=== PATIENT | male | born 1965 | race Caucasian/White ===

== ENCOUNTER → 2018-07-03 16:39 | Outpatient (CLI) | payer OTHER, SELFPAY | PROVIDERS: Visit Provider Otolaryngology Otolaryngology/Facial Plastic Surgery | DX: J32.9 Chronic sinusitis, unspecified (principal) | CPT/HCPCS: 87070; 87205 ==

== ENCOUNTER → 2023-02-26 | Outpatient (CLI) | payer OTHER, SELFPAY ==
--- NOTE | 2023-02-26 15:15 | RAD_ITS ---
INDICATION: COUGH EXAMINATION/TECHNIQUE: X-RAY - XR Chest 2 Views COMPARISON: FINDINGS: LINES/DEVICES: None. LUNGS: Moderate over aeration consistent with COPD. No consolidation, edema or effusion. No pneumothorax. MEDIASTINUM AND CARDIOVASCULAR STRUCTURES: Cardiac silhouette not enlarged. Central airways and mediastinal contour are unremarkable. BONES AND SOFT TISSUES: Unremarkable. RAD/Chest PA and Lateral IMPRESSION: COPD. Electronically Signed: Gary Valiente MD, ESTEBAN at 17:38 EDT ,
== END | disposition home or self-care (01) ==
LOC: RAD 15:13
PROVIDERS: PCP Family Medicine; Referring Provider Family Medicine; Visit Provider Family Medicine
DX: R05.3 Chronic cough (principal)
CPT/HCPCS: 71046

== ENCOUNTER 2023-11-19 10:49 | Emergency (ER) | payer OTHER, SELFPAY ==
[2023-11-19] VITALS (11 sets, daily range): BP systolic 136–219; BP diastolic 84–118; PULSE 74–87; RESP 14–19; TEMP 35.9; O2SAT 95–100; BMI 20.1
--- NOTE | 2023-11-19 12:04 | EKG12_ITS ---
Test Reason : HTN Blood Pressure : / mmHG Vent. Rate : 091 BPM Atrial Rate : 091 BPM P-R Int : 162 ms QRS Dur : 090 ms QT Int : 362 ms P-R-T Axes : 071 067 061 degrees QTc Int : 445 ms Normal sinus rhythm Possible Left atrial enlargement Nonspecific ST abnormality Abnormal ECG Confirmed by MARITZA SINGH, REGAN ([id number]), editor [employer] journal COLBY NEVES ([id number]) on 11/21/2023 8:01:08 AM Referred By: Confirmed By:REGAN SALAS MD
--- OUTSIDE RECORDS SUMMARY | 2023-11-19 12:04 | XMS RPT_ITS | CCD ---
Author Name Unknown Address [address] [place] [address] Organization [facility] Care Team Providers Care Crm Technical Lead Name Role Phone Sandro Garcia MD Primary Care Provider Cindy Galicia RN Unavailable Walter Cruz Unavailable Christian Roldan MD Unavailable Walter Cruz Unavailable PROVIDER, UNKNOWN Referring Unavailable RADHA SANDRO B Primary Care Unavailable PROVIDER, UNKNOWN Referring Unavailable GARCIA, SANDRO B Primary Care Unavailable Cindy Galicia RN Unavailable SANDRO GARCIA Primary Care Unavailable AMBANI, KIT Referring Unavailable GARCIA, SANDRO B Primary Care Unavailable AMBANI, KIT Referring Unavailable GARCIA, SANDRO B Primary Care Unavailable JOYA TERRAZAS Referring Unavailable GARCIA, SANDRO B Primary Care Unavailable AMBANI, KIT Referring Unavailable AMBANI, KIT Attending Unavailable GARCIA, SANDRO B Primary Care Unavailable RICARDO JOYA Referring Unavailable TERRAZAS JOYA Attending Unavailable GARCIA, SANDRO B Primary Care Unavailable AMBANI, KIT Referring Unavailable GARCIA, SANDRO B Primary Care Unavailable AMBANI, KIT Attending Unavailable AMBANI, KIT Admitting Unavailable GARCIA, SANDRO B Primary Care Unavailable AMBANI, KIT Referring Unavailable GARCIA, SANDRO B Primary Care Unavailable PRENDES, CHRIS L Referring Unavailable AMBANI, KIT Attending Unavailable GARCIA, SANDRO B Primary Care Unavailable PRENMILES, CHRIS L Referring Unavailable GARCIA, SANDRO B Primary Care Unavailable PRENDES, CHRIS L Referring Unavailable GARCIA, SANDRO B Primary Care Unavailable PRENDES, CHRIS L Attending Unavailable GARCIA, SANDRO B Primary Care Unavailable Allergies Allergy Classification Reported Allergen(s) Allergy Type Date of Onset Reaction(s) Facility (12 sources) Amoxicillin / Clavulanate; Translations: [AMOXICILLIN-POT CLAVULANATE] Drug Allergy 10-30-2007 [facility] (1 source) Rocuronium; Translations: [ROCURONIUM] Drug Allergy 11-18-2023 [facility] Repository Medications Current Medications Medication Drug Class(es) Dates Sig (Normalized) Sig (Original) atorvastatin 80 mg oral tablet (1 source) HMG-CoA Reductase Inhibitor Start: 10-07-2023 End: 10-06-2024 take 1 tablet by mouth once daily atorvastatin (LIPITOR) 80 mg tablet Take 1 tablet by mouth once daily. 90 tablet 3 10/07/2023 10/06/2024 Active Completed/Discontinued Medications Medication Drug Class(es) Dates Sig (Normalized) Sig (Original) [id number] 200 actuat albuterol 0.09 mg/actuat metered dose inhaler (10 sources) beta2-Adrenergic Agonist Start: 07-10-2021 take 2-4 puff(s) by inhalation every two hours as needed for wheezing albuterol HFA (PROVENTIL HFA, VENTOLIN HFA) 90 mcg/actuation inhaler Inhale 2-4 Puffs as instructed every 2 hours as needed for wheezing/shortnes s of breath. 8 g 0 07/10/2021 Active Problems Active Problems Problem Classification Problem Date Documented Da te Episodic/Chronic Cancer of head and neck (12 sources) Malignant tumor of tonsil; Translations: [Malignant neoplasm of tonsil, unspecified] Onset: 02-20-2016 Chronic Chronic obstructive pulmonary disease and bronchiectasis (10 sources) Centriacinar emphysema; Translations: [Centrilobular emphysema] Onset: 06-12-2019 06-15-2019 Chronic Essential hypertension (10 sources) Essential hypertension; Translations: [Essential (primary) hypertension] Onset: 06-12-2019 06-15-2019 Chronic Headache; including migraine (10 sources) Migraine variants; Translations: [Other migraine, not intractable, without status migrainosus] Onset: 10-30-2007 06-28-2016 Chronic Melanomas of skin (10 sources) Lentigo maligna; Translations: [Melanoma in situ, unspecified] Onset: 04-19-2016 04-19-2016 Chronic Occlusion or stenosis of precerebral arteries (7 sources) Bilateral stenosis of carotid arteries; Translations: [Occlusion and stenosis of bilateral carotid arteries] Onset: 10-03-2023 08-25-2023 Chronic Other bone disease and musculoskeletal deformities (1 source) Disorder of bone, unspecified; Translations: [Disorder of bone] Onset: 09-22-2023 Episodic Other bone disease and musculoskeletal deformities (1 source) Disorder of bone; Translations: [Disorder of bone, unspecified] 09-22-2023 Episodic Substance-related disorders (10 sources) Nicotine dependence; Translations: [Nicotine dependence, unspecified, uncomplicated] Onset: 06-14-2019 06-15-2019 Chronic Thyroid disorders (10 sources) Acquired hypothyroidism; Translations: [Hypothyroidism, unspecified] Onset: 06-12-2019 06-15-2019 Chronic Unclassified (1 source) Radiology NM Onset: 09-22-2023 Past or Other Problems Problem Classification Problem Date Documented Date Episodic/Chronic Administrative/social admission (10 sources) Discharge status; Translations: [Encounter for administrative examinations, unspecified] Onset: 06-12-2019 06-15-2019 Episodic Allergic reactions (10 sources) Adverse effect of radiation therapy; Translations: [Other specified disorders of the skin and subcutaneous tissue related to radiation] Onset: 04-17-2021 04-17-2021 Episodic Cancer of head and neck (10 sources) History of malignant neoplasm of oropharynx; Translations: [Personal history of malignant neoplasm of unspecified site of lip, oral cavity, and pharynx] Onset: 08-03-2017 08-03-2017 Episodic Diseases of mouth; excluding dental (10 sources) Sialoadenitis; Translations: [Sialoadenitis, unspecified] Onset: 01-14-2017 01-14-2017 Episodic Disorders of teeth and jaw (10 sources) Radicular cyst; Translations: [Radicular cyst] Onset: 03-08-2016 03-08-2016 Episodic Fluid and electrolyte disorders (10 sources) Hyponatremia; Translations: [Hypo-osmolality and hyponatremia] Onset: 06-13-2019 10-30-2021 Episodic Other lower respiratory disease (11 sources) Multiple nodules of lung; Translations: [Other nonspecific abnormal finding of lung field] Onset: 06-11-2019 Episodic Other lower respiratory disease (1 source) Other nonspecific abnormal finding of lung field; Translations: [Lung nodules] Onset: 05-05-2023 Episodic Other nervous system disorders (10 sources) Postoperative pain ; Translations: [Other acute postprocedural pain] Onset: 06-12-2019 06-15-2019 Episodic Pleurisy; pneumothorax; pulmonary collapse (10 sources) Left pneumothorax; Translations: [Pneumothorax, unspecified] Onset: 06-14-2019 06-15-2019 Episodic Residual codes; unclassified (10 sources) Tobacco user; Translations: [Tobacco use] Onset: 02-24-2018 02-24-2018 Episodic Results Test Name Value Interpretation Reference Range Facil ity Vital Signs Date Time Vital Sign Value Performing Clinician Faci lity 11-18-2023 10:25-0500 SaO2% (BldA) [Mass fraction] 98 % SANDRO GARCIA [facility] Encounters Encounter Date Encounter Type Care Provider Facility Start: 11-17-2023 End: 11-18-2023 Evaluation and management of inpatient SANDRO GARCIA Facility:[facility] Start: 11-14-2023 End: 11-14-2023 ambulatory SANDRO GARCIA Facility:[facility] Start: 11-11-2023 End: 11-11-2023 ambulatory SANDRO GARCIA Facility:[facility] Start: 11-11-2023 Encounter for other preprocedural examination SANDRO GARCIA [facility] Start: 11-11-2023 End: 11-12-2023 ambulatory SANDRO GARCIA Facility:[facility] Start: 10-14-2023 Telephone encounter Kit Loredo i, MD Work Phone: Vascular Surg Dept Procedures Date Procedure Procedure Detail Performing Clinician Start: 11-11-2023 Antibody screen SANDRO GARCIA Plan of Treatment Date Care Activity Detail Author Start: 12-27-2026 PROSTATE CANCER SCREENING DISCUSSION PROSTATE CANCER SCREENING DISCUSSION [facility] Start: 12-27-2026 Prostate specific antigen measurement Prostate Cancer Screening Discussion [facility] Start: 07-04-2023 Covid-19 Vaccine ( season) Covid-19 Vaccine () [facility] Start: 07-04-2023 Influenza vaccination [facility] Start: 11-03-2022 DEPRESSION ASSESSMENT DEPRESSION ASSESSMENT [facility] Start: 10-29-2022 DIABETES SCREEN DIABETES SCREEN [facility] Start: 10-29-2022 Diabetes Screening Diabetes Screening [facility] Start: 2022 COVID-19 VACCINE (5 - Booster for Moderna series) COVID-19 VACCINE (5 - Booster for Moderna series) [facility] Start: 2016 SHINGRIX VACCINE (1 of 2) SHINGRIX VACCINE (1 of 2) [facility] Start: 2011 COLOGUARD (FIT-DNA) COLOGUARD (FIT-DNA) [facility] Start: 2011 Colonoscopy COLONOSCOPY [facility] Start: 2011 COLORECTAL CANCER SCREENING COLORECTAL CANCER SCREENING [facility] Start: [address] COLONOGRAPHY [facility] Start: 2011 FECAL OCCULT BLOOD FECAL OCCULT BLOOD [facility] Start: 2011 Screening for malignant neoplasm of colon [facility] Start: 2011 SIGMOIDOSCOPY SIGMOIDOSCOPY [facility] Start: 2001 Lipid 1996 panel - Serum or Plasma Lipid Screening [facility] Start: 2001 Lipid panel Lipid Screening [facility] Start: 2001 LIPID SCREEN LIPID SCREEN [facility] Start: 1996 Zoledronic acid therapy ALPHA-1 ANTITRYPSIN DEFICIENCY SCREENING [facility] Start: 1985 Urine microalbumin profile [facility] Start: 1984 ANNUAL PCP TEAM CHRONIC DISEASE VISIT ANNUAL PCP TEAM CHRONIC DISEASE VISIT [facility] Start: 1984 BP CONTROLLED (<130/80) BP CONTROLLED (<130/80) [facility] Start: 1984 HEPATITIS C SCREENING HEPATITIS C SCREENING [facility] Start: 1984 Hepatitis C screening Hepatitis C Screening [facility] Start: 1984 HIV SCREENING HIV SCREENING [facility] Start: 1984 HIV screening HIV Screening [facility] Start: 1972 PNEUMOCOCCAL (1 - PCV) PNEUMOCOCCAL (1 - PCV) [facility] Start: 1972 Pneumococcal vaccination Pneumococcal Vaccine (1 - PCV) [facility] Start: 1966 HEPATITIS B (1 of 3 - 3-dose series) HEPATITIS B (1 of 3 - 3-dose series) [facility] Start: 1966 Hepatitis B Vaccine (1 of 3 - 3-dose series) Hepatitis B Vaccine (1 of 3 - 3-dose series) [facility] End: 04-25-2024 CT CHEST W IVCON CT CHEST W IVCON Radiology Routine Tonsil cancer (HCC) Lung nodules 1 Occurrences starting 03/27/2023 until 04/25/2024 [facility] Work Phone: Payers Date Payer Category Payer Unknown MMO MMO [employer] PPO [id number] 2019-Present [phone] [address] [place] [address] PPO [id number] 2019 Unknown [id number] Social History Date Type Detail Facility Start: 1986 End: 10-03-2023 Tobacco smoking status NHIS Occasional tobacco smoker [facility] Start: 1986 History of tobacco use Cigarette Smo ker [facility] Start: 11-26-2019 End: 03-27-2023 Cigarettes smoked current (pack per day) - Reported 1 [facility] Start: 11-26-2019 End: 10-03-2023 Tobacco use and exposure Smokeless tobacco non-user [facility] Start: 03-27-2023 End: 10-03-2023 Alcohol intake Current drinker of alcohol (finding) [facility] Start: 11-26-2019 End: 10-03-2023 Tobacco Comment pack per day [facility] Start: 12-25-2021 Alcohol Comment 05/27/19 down t o 1-3 beers per day [facility] Start: 1965 Sex Assigned At Not on file [facility] Start: 06-12-2019 End: 03-27-2023 Tobacco use panel [facility] Start: 04-03-2021 Sexual orientation Heterosexual (bib horton) [facility] Clinical Notes 10-02-2016 to 11-18-2023 Telephone Encounter - Nany Rivers RN - 10/14/2023 4:08 PM Kit Nunes MD - 10/03/2023 11:18 AM ESTTelephone Encounter - Chris Moscoso MD - 09/24/2023 10:10 AM EST Note Date & Type Note Facility 11-18-2023 Note HNO ID: [id number] Author: ADRIANA RUIZ APRN.CARDIAC NURSE Service: Critical Care Author Type: Nurse Practitioner Type: Progress Notes Filed: 11/18/2023 09:55 Note Text: [facility] CVICU Progress Note Name: Priyanka Grey Admission Date: 11/17/2023 Hospital Day: # 1 1 Day Post-Op Care Coordination Note Indication for Surgery: Asymptomatic bilateral carotid stenosis Preop LVEF: 60% RVF: Normal Important/Relevant PMH/PSH: tonsillar CA s/p neck radiation/chemo, adenocarcinoma of left lung s/p left upper lobectomy 2018, HTN, and b/l carotid stenosis Preoperative Hospital Course: Airway Difficulty: Grade I - No special instrumentation Pacing Wires: No Chronological List of Surgeries and Major Events (Diagnosis): (Surgeries in bold characters) 11/17/2023: Left carotid endarterectomy with bovine patch angioplasty, intra-operative shunting A/P of Major Active Problems (excluding routine care and common problems): Neuro: Post op pain - PRN oxycodone CV: HTN- On losartan and verapamil preop. SBP goals 100-160. PRN Metoprolol. Resume home regimen when taking PO. Hypotension- Occurrence intra op post rocuronium administration. Requiring vasopressors and Hydrocortisone. On Roman until arrived to CVICU.Unclear if allergic reaction, Tryptase sent. Carotid stenosis - s/p endarterectomy. On lipitor at home. Monitor neuro, Maintain SBP goals, and resume statin when taking PO. Pulm: atelectasis/ adenocarcinoma s/p left upper lobectomy/ centrilobular emphysema - On Advair and albuterol at home. Post op On 2 L NC. Start scheduled dulera inhaler. BPH, PEP, OOB, Wean O2 as able. Renal: Hyponatremia- chronic 128 mmol pre op. Na 119 today on ABG, asymptomatic. Urine sodium ordered, 800 ml Fluid restriction. Nephrology consult placed. Endocrine: Acquired Hypothyroidism-Clinically euthyroid. resume home synthroid. _ To Do or to Watch: Monitor Neuro SBP goal 100-160 Discharge Planning: Anticipated Discharge Date: TBD Barriers to Discharge: Unknown Care Management Discharge Needs: Other Problems I Reviewed and/or Managed During This Encounter: Principal Problem: Carotid stenosis, asymptomatic, bilateral (POA: Yes) Active Problems: Centrilobular emphysema (HCC) (POA: Yes) Hyponatremia (POA: Yes) Post-op pain (POA: Yes) Essential hypertension (POA: Yes) Acquired hypothyroidism (POA: Yes) Carotid stenosis, left (POA: Yes) Atelectasis (POA: No) Resolved Problems: * No resolved hospital problems. * Problem Hyponatremia Sodium Date Value Ref Range Status 11/18/2023 123 (L) 136 - 144 mmol/L Final 11/17/2023 124 (L) 136 - 144 mmol/L Final 11/11/2023 128 (L) 136 - 144 mmol/L Final Physical Exam Vitals: 11/18/23 0810 11/18/23 0830 11/18/23 0850 11/18/23 0910 Pulse: 69 74 66 68 BP: 125/57 101/53 111/55 MAP Non Invasive (Mean Arterial Pressure): 82 73 77 Arterial BP 1: 128/57 115/54 99/46 94/45 MAP Invasive (Mean Arterial Pressure) 1: 82 77 65 63 Resp: 15 21 14 15 SpO2: 96% 96% 96% 95% There were no vitals filed for this visit. Weight: 62.6 kg (138 lb) (11/17/23 0549) Weight: 68.2 kg (150 lb 5.7 oz) (11/18/23 0548) Ventilator: N/A, patient is extubated Vent/Oxygen: PHYSICAL EXAMINATION: Choices are re-selectable with a right click General Appearance and Neuro: General and Neuro: NAD, follows commands, moving all extremities Heart AND Vascular: Cardiovascular: RRR, no ectopy, no murmur, strong peripheral pulses Lung: Lung: Lungs clear to auscultation. No wheezing, rhonchi, or rales Abdomen: Abdomen: Abdomen soft, non-tender, BS normal, no masses or organomegaly Renal: Renal: Adequate UOP Extremities/MSK/Incision: Extremities/MSK/Incision: No edema, warm Diagnostic tests reviewed DIAGNOSTIC TEST REVIEWED: Most recent labs and imaging results. CBC, Coags, BMP, Mg, Phos Recent Labs 11/18/23 0029 11/17/23 1147 WBC 11.39* 9.32 HB 12.5* 13.3 HCT 34.5* 35.6* PLT 235 276 INR -- 1.1 APTT 29.7 31.5 NA 123* 124* K 3.4* 3.7 CHLOR 88* 89* CO2 24 25 BUN 7* 6* CREAT 0.88 0.82 GLUC 85 111* CA 8.2* 8.1* MG -- 1.5* P 2.4* 2.3* Liver Function, Amylase, AND Lipase Recent Labs 11/18/23 0825 11/18/23 0522 11/17/23 1200 LACT 1.5 0.6 1.4 ABGs Recent Labs 11/18/23 0825 11/18/23 0522 11/17/23 1200 11/17/23 1053 11/17/23 0836 11/17/23 0734 PH 7.46* 7.43 7.39 7.41 7.41 7.46* PCO2 37 43 42 42 42 39 PO2 94 85 114* 220* 217* 85 BE 2 4* 1 1 2 3* HCO3 25 28* 25 26 26 27* O2HB 95 95 93* 94* 93* 89* COHB 1.3 1.7 3.6* 4.5* 5.3* 7.4* MHGB 1.3 0.8 1.2 1.0 1.3 0.7 PHTC -- -- -- 7.41 7.41 7.46* PCO2T -- -- -- 42 42 39 PO2T -- -- -- 220* 217* 85 Intake / Output Intake/Output Summary (Last 24 hours) at 11/18/2023 0953 Last data filed at 11/18/2023 0759 Gross per 24 hour Intake 3592 ml Output 3300 ml Net 292 ml Supportive Therapies (more content not included)... [facility] 11-17-2023 Note HNO ID: [id number] Author: ADRIANA RUIZ APRN.CARDIAC NURSE Service: Critical Care Author Type: Nurse Practitioner Type: Progress Notes Filed: 11/17/2023 13:14 Note Text: [facility] Admission Note Name: Priyanka Grey Principal Diagnosis: Carotid stenosis, asymptomatic, bilateral Indication for Surgery: Asymptomatic bilateral carotid stenosis Preop LVEF: 60% RVF: Normal Important/Relevant PMH/PSH: tonsillar CA s/p neck radiation/chemo, adenocarcinoma of left lung s/p left upper lobectomy 2019, HTN, and b/l carotid stenosis Preoperative Hospital Course: Airway Difficulty: Grade I - No special instrumentation Pacing Wires: No Chronological List of Surgeries and Major Events (Diagnosis): (Surgeries in bold characters) 11/17/2023: Left carotid endarterectomy with bovine patch angioplasty, intra-operative shunting A/P of Major Active Problems (excluding routine care and common problems): Neuro: Post op pain - PRN oxycodone CV: HTN- On losartan and verapamil preop. SBP goals 100-160. PRN Metoprolol. Resume home regimen when taking PO. Hypotension- Occurrence intra op post rocuronium administration. Requiring vasopressors and Hydrocortisone. On Roman until arrived to CVICU.Unclear if allergic reaction, Tryptase sent. Carotid stenosis - s/p endarterectomy. On lipitor at home. Monitor neuro, Maintain SBP goals, and resume statin when taking PO. Pulm: atelectasis/ adenocarcinoma s/p left upper lobectomy/ centrilobular emphysema - On Advair and albuterol at home. Post op On 2 L NC. Start scheduled dulera inhaler. BPH, PEP, OOB, Wean O2 as able. Endocrine: Acquired Hypothyroidism-Clinically euthyroid. resume home synthroid. _ To Do or to Watch: Monitor Neuro SBP goal 100-160 NPO until tomorrow [facility] [place] Discharge Planning: Anticipated Discharge Date: TBD Barriers to Discharge: Unknown Care Management Discharge Needs: Additional Hospital Problems Active Hospital Problems Diagnosis Carotid stenosis, asymptomatic, bilateral Centrilobular emphysema (HCC) Carotid stenosis, left Atelectasis Essential hypertension Post-op pain Acquired hypothyroidism Infusions: None CVICU Admission ECG: Reviewed Neuro: Awake, Follows commands, Alert and oriented x 3, and DAVALOS . Cardiovascular: Rhythm: regular rate and rhythm and Rate:normal sinus rhythm SBP: 156 mmHg Peripheral pulses present: All present Pulmonary: Clear to auscultation and Breath sounds equal Ventilator: Extubated Abdominal: Soft and Non-tender Continued need for urinary catheter: Yes - clinical indication: Patient post major surgery requiring fluid balance and input and output measurement. DAY OF SURGERY PLAN: Standard Protocol, extubated patient: Cardiovascular monitoring, stabilization of blood pressure, management of intravascular volume, oxygenation, monitoring of neurovascular function, pain control, glycemic control, DVT and antibiotic prophylaxis. I spent a total of 50 minutes on the date of the service which included preparing to see the patient, [id number] patient care, completing clinical documentation, obtaining and/or reviewing separately obtained history, performing a medically appropriate examination, counseling and educating the patient/family/caregiver, ordering medications, tests, or procedures, communicating with other HCPs (not separately reported), independently interpreting results (not separately reported), communicating results to the patient/family/caregiver, and care coordination (not separately reported). Level III SIGNATURE: Adriana Ruiz APRN.CNP DATE of SERVICE: 11/17/2023 TIME of SERVICE: 1:10 PM [facility] 11-17-2023 Note HNO ID: [id number] Author: JOHN CRYSTAL APRN.MEGA Service: ? Author Type: Nurse Lace Roller Type: Anesthesia Procedure Notes Filed: 11/17/2023 08:41 Note Text: ANESTHESIOLOGY PROCEDURE NOTE A-Line General Information Procedure Start Time/Medication Administration: 11/17/2023 7:19 AM Patient location during procedure: OR Consent Obtained: Yes Patient identity confirmed: arm band Indications: continuous blood pressure monitoring and blood sampling needed Staffing DIRECTOR OF FUNDRAISING: John Crystal APRN.DIRECTOR OF FUNDRAISING Performed by: MEGA Preparation Sterility Preparation: hand hygiene performed prior to procedure, sterile gloves, drapes, and procedure tray, surgical cap used, mask used, sterile drape used during line insertion, skin prep agent completely dried prior to procedure Site Prep: Chloraprep Procedure Details Catheter Type: arterial line Catheter Size: 20 G Catheter Length: 5.25 in Guidewire Used: Yes Guidewire Removed Intact: Yes Laterality: right Site: radial artery Ultrasound Guided: No Line Secured: tape and occlusive biodressing Events Events: patient tolerated procedure well with no complications SIGNATURE: John Crystal APRN.CRNA PATIENT NAME: Priyanka Grey DATE: November 17, 2023 TIME: 8:40 AM CSN: [id number] [facility] 11-17-2023 Note HNO ID: [id number] Author: JOHN CRYSTAL APRN.DIRECTOR OF FUNDRAISING Service: ? Author Type: Nurse Lace Roller Type: Anesthesia Procedure Notes Filed: 11/17/2023 08:20 Note Text: ANESTHESIOLOGY PROCEDURE NOTE Airway General Information Procedure Start Time/Medication Administration: 11/17/2023 7:28 AM Patient location during procedure: OR Patient identity confirmed: arm band Staffing DIRECTOR OF FUNDRAISING: John Crystal APRN.DIRECTOR OF FUNDRAISING Performed by: MEGA Indications and Patient Condition Indications for airway management: anesthesia Preoxygenated: yes anesthesia circuit Patient position: sniffing Method: asleep Final Airway Details Final airway type: endotracheal airway Final Endotracheal Airway: ETT Cuffed: yes Successful intubation technique: video laryngoscopy Devices used: Sheikh Endotracheal tube insertion site: oral Blade size: #4 ETT size (mm): 8.0 Measured from: lips Measurement (cm): 23 Placement verified by: capnometry Cormack-Lehane Classification: grade I - full view of glottis Number of attempts at approach: 1 Airway not difficult SIGNATURE: John Crystal APRN.CRNA PATIENT NAME: Priyanka Grey DATE: November 17, 2023 TIME: 8:19 AM CSN: [id number] [facility] 11-11-2023 Note HNO ID: [id number] Author: KIT MUNGUIA MD Service: ? Author Type: Physician Type: Progress Notes Filed: 11/11/2023 14:53 Note Text: Please see HANDP by Joya Terrazas CNP. Informed consent was obtained and documented in the chart. [facility] 11-11-2023 Note HNO ID: [id number] Author: MALA MYERS DO Service: ? Author Type: Fellow Type: Progress Notes Filed: 11/11/2023 12:53 Note Text: Cardiothoracic Anesthesiology Preoperative Assessment Service Date: 11/11/2023 Service Time: 12:50 PM Primary Care Physician: Sandro Garcia MD Subjective Patient Entered Data: Cardiothoracic Surgery Pre-Op Questionnaire 11/11/2023 Previous anesthesia problems No Family history anesthesia problems No Blood consent Yes Esophageal history None Implanted devices No History difficult airway No Airway surgery No Ongoing pain issues No Heparin intolerance No Daily alcohol use Yes Illicit drug use No HPI: Priyanka Grey is a 58 year old male presenting for preoperative HANDP. History includes tonsillar CA s/p neck radiation/chemo, adenocarcinoma of left lung s/p left upper lobectomy 2018, HTN, and b/l carotid stenosis. CTA displays b/l ICA of 70%. Denies CVA/TIA/amaurosis. Pt scheduled for left carotid artery endarterectomy with Dr. Munguia. Review no known heparin intolerance anticoagulant/antiplatelet medication(s) - Patient is taking anticoagulant and/or antiplatelet medication with plans of continuing medication no known esophageal disorders blood transfusion consented - COVID-19 Immunization Status Overdue - Covid-19 Vaccine () Overdue since 07/04/2023 05/26/2022 Imm Admin: COVID-19 original vaccine, full dose, monovalent (MODERNA) 10/23/2021 Imm Admin: COVID-19 original vaccine, full dose, monovalent (MODERNA) 02/14/2021 Imm Admin: COVID-19 original vaccine, full dose, monovalent (MODERNA) Only the first 3 history entries have been loaded, but more history exists. 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 S/p chemoRT PAST SURGICAL HISTORY Procedure Laterality Date PAST SURGICAL HISTORY OF colon polyps removal RMVL LUNG OTHER THAN PNEUMONECTOMY 1 LOBE LOBECT 06/2019 [facility] FAMILY HISTORY Problem Relation Age of Onset Hypertension Father Stroke Father Diabetes Father Type 2 Lipids Mother Headache Mother Cancer Mother lung Social History Tobacco Use Smoking status: Some Days Packs/day: 1.00 Years: 15.00 Additional pack years: 0.00 Total pack years: 15.00 Types: Cigarettes Start date: 1986 Smokeless tobacco: Never Tobacco comments: pack per day Vaping Use Vaping Use: Former Substance Use Topics Alcohol use: Yes Alcohol/week: 25.0 - 28.0 standard drinks of alcohol Types: 25 - 28 Cans of Beer (12oz) per week Comment: 05/27/19 down to 1-3 beers per day Drug use: No Prior to Admission medications as of 11/11/23 1008 Medication Sig Last Dose Taking losartan (COZAAR) 50 mg tablet Take 1 tablet by mouth every afternoon. atorvastatin (LIPITOR) 80 mg tablet Take 1 tablet by mouth once daily. BABY ASPIRIN ORAL Take 81 mg by mouth once daily. fluticasone-salmeterol (ADVAIR, WIXELA) 250-50 mcg/dose inhaler Inhale 1 Puff as instructed two times a day. albuterol HFA (PROVENTIL HFA, VENTOLIN HFA) 90 mcg/actuation inhaler Inhale 2-4 Puffs as instructed every 2 hours as needed for wheezing/shortness of breath. alprazolam (XANAX ORAL) Take 1 tablet by mouth as needed. levothyroxine (SYNTHROID) 75 mcg tablet TAKE 1 TABLET BY MOUTH EVERY DAY verapamil SR (CALAN SR, ISOPTIN SR) 240 mg CR tablet Take 1 tablet by mouth once daily. No medication comments found. ALLERGIES Allergen Reactions Augmentin [Amoxicil* Swelling Severe facial swelling and hives Objective Pain Assessment: Vitals: There were no vitals taken for this visit. Diagnostic tests reviewed for today's visit: Lab Value Units Date High Low HB 15.3 g/dL 11/11/2023 17.0 13.0 HCT 43.8 % 11/11/2023 51.0 39.0 WBC 8.10 k/uL 11/11/2023 11.00 3.70 PLT 289 k/uL 11/11/2023 400 150 NA No results within date range. K No results within date range. GLUC No results within date range. BUN No results within date range. CREAT No results within date range. PTSEC No results within date range. INR No results within date range. APTT No results within date range. ALT No results within date range. AST No results within date range. TBILI No results within date range. TSH No results within date range. Lab Value Units Date High Low (more content not included)... [facility] 11-11-2023 Note HNO ID: [id number] Author: JOYA TERRAZAS APRN.CNP Service: ? Author Type: Nurse Practitioner Type: Progress Notes Filed: 11/11/2023 10:20 Note Text: AMBULATORY PATIENT EDUCATION READINESS TO LEARN COGNITIVE ABILITY: Alert and oriented MOTIVATION TO LEARN: Eager FAMILY SUPPORT: High - Very involved in pt care INSTRUCTION PROVIDED TO: Patient and family member PATIENT LEARNS BEST BY: Individual Instruction Written Instruction - Hand-outs Verbal Instruction FACTORS AFFECTING LEARNING: None PHYSICAL LIMITATIONS AFFECTING LEARNING: None LEARNING RESPONSE METHOD OF INSTRUCTION: Individual instruction Written instruction - handouts Verbal instruction PATIENT / FAMILY RESPONSE: Verbalizes understanding of: PRE-OPERATIVE INSTRUCTIONS-Correct action to take to follow pre-operative instructions FOLLOW-UP PLAN: Office contact information provided. SUPPLEMENTAL MATERIAL: Vascular Surgery Preparation Handout, Bactroban Nasal Ointment Instructions REFERRAL (RECOMMENDATION): None Electronically Signed By: Joya Terrazas APRN.CARDIAC NURSE In Department: VASCULAR SURG DEPT [facility] 10-14-2023 Miscellaneous Notes Spoke with patient. Echo completed and OK. Patient agreeable to surgery date of 11/17/23 with pre-ops to be completed prior to surgery. Patient agreeable to plan. Patient requesting Dr. Munguia notify PCP of recommendations for BP med titration. Faxed office note PCP Dr. Garcia. DIRK Ayon documented in this encounter [facility] 10-03-2023 Note HNO ID: [id number] Author: Rasheed Bunch, RN Service: Nursing Author Type: Registered Nurse Type: Progress Notes Filed: 10/03/2023 9:51 AM Note Text: Radiology Service Progress Note DATE OF SERVICE: October 03, 2023 TIME: 9:44 AM PATIENT WEIGHT: 140 LBS PATIENT IDENTITY VERIFICATION COMPLETED USING TWO (2) STANDARD IDENTIFIERS: Name and Date of confirmed by patient verbally. FALL SCREENING: Has the patient had 2 falls in the last year or 1 fall with injury or currently using an Ambulatory Assistive Device (Walker, Cane, Wheelchair, Crutches, etc.)? No PATIENT GENDER DATA: Male ALLERGIES: Reviewed and unchanged CONTRAST ALLERGY: No EXAM: CT -CONTRAST INDUCED NEPHROPATHY RISK FACTORS: Not applicable CREATININE: Creatinine Date Value Ref Range Status 10/29/2019 1.31 (H) 0.73 - 1.22 mg/dL Final 06/15/2019 0.71 (L) 0.73 - 1.22 mg/dL Final 06/14/2019 0.75 0.73 - 1.22 mg/dL Final eGFR-All Other Races Date Value Ref Range Status 10/29/2019 57 . Final Comment: eGFR (Estimated GFR) Units of measure: mL/min/1.73 meters squared eGFR is derived from the reexpressed MDRD Study equation using the following parameters: serum creatinine, age, gender and race. The creatinine assay has been calibrated to be traceable to IDMS. An eGFR <60 mL/min/1.73m2 for >3 months is consistent with chronic kidney disease. Refer to KDOQI guidelines for clinical interpretation. In patients with unstable renal function, e.g. those with acute kidney injury, the eGFR may not accurately reflect actual GFR. eGFR- Date Value Ref Range Status 10/29/2019 >60 Final P.O.C.T. RESULTS: N/A October 03, 2023 TREATMENT: N/A IV SITE: Ambulatory: A peripheral IV was started in the Left antecubital site with a Angio cath: 20 gauge. IV SITE APPEARANCE: Clean,Dry and Intact SIGNATURE: Rasheed Bunch RN PATIENT NAME: Priyanka Grey DATE: October 03, 2023 TIME: 9:44 AM [facility] 10-03-2023 Note HNO ID: [id number] Author: Maria A Cason RT(R) Service: Radiology Author Type: Technologist Type: Progress Notes Filed: 10/03/2023 10:03 AM Note Text: Radiology Service Progress Note PATIENT NAME: Priyanka Grey DATE OF SERVICE: October 03, 2023 TIME: 10:02 AM PATIENT IDENTITY VERIFICATION COMPLETED USING TWO (2) IDENTIFIERS: Name and Date of confirmed by patient verbally. FALL SCREENING: Has the patient had 2 falls in the last year or 1 fall with injury or currently using an Ambulatory Assistive Device (Walker, Cane, Wheelchair, Crutches, etc.)? No PATIENT GENDER DATA: Male PATIENT RELEVANT IMPLANT DATA REVIEWED: Yes RADIOLOGY DEPARTMENT: CT; Exam(s) Completed: CTA Brain and CTA Neck PERIPHERAL IV DATA: Site assessment: Clean,Dry and Intact, Site disposition Discontinued SIGNED BY: RT Yasmine(R) October 03, 2023 10:02 AM [facility] 10-03-2023 History and physical note Images from the original note were not included. Heart , Vascular [facility] Thor[facility] [place] DEPARTMENT OF VASCULAR SURGERY OUTPATIENT VISIT DATE October 03, 2023 OUTPATIENT VISIT TYPE CONSULTATION SERVICE DATE: 10/03/2023 SERVICE TIME: 11:18 AM PRIMARY CARE PHYSICIAN: Sandro Garcia MD REFERRING PROVIDER: Chris Moscoso [address] [facility] [address] Consult requested for an opinion regarding the evaluation and treatment of the above. My final impression and recommendations will be communicated back to the requesting physician by way of the shared medical record or letter via [place] mail. CHIEF COMPLAINT: Bilateral carotid artery stenosis HISTORY OF PRESENT ILLNESS: Vascular consultation at the request of Dr. Chris Moscoso. A copy of this consultation note will be provided to the requesting physician by way of shared Medical record or letter to requesting physician via [place] mail. Mr. Grey is a 58 year old male who is seen today for evaluation and management of bilateral carotid artery stenosis. Patient states that 6 years ago he had neck radiation for tonsillar cancer. He had a recent CT with contrast with demonstrated bilateral carotid artery stenosis, and subsequently underwent a duplex ultrasound which confirmed these findings with bilateral high-grade stenosis. From a carotid standpoint, patient is asymptomatic with no history of CVA, TIAs, or amaurosis fugax. He states he is predominantly right-handed and is otherwise quite active. 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 S/p chemoRT PAST SURGICAL HISTORY Procedure Laterality Date PAST SURGICAL HISTORY OF colon polyps removal RMVL LUNG OTHER THAN PNEUMONECTOMY 1 LOBE LOBECT 06/2019 [facility] SOCIAL HISTORY: Social History Tobacco Use Smoking status: Some Days Packs/day: 1.00 Years: 15.00 Additional pack years: 0.00 Total pack years: 15.00 Types: Cigarettes Start date: 1986 Smokeless tobacco: Never Tobacco comments: pack per day Vaping Use Vaping Use: Former Substance Use Topics Alcohol use: Yes Alcohol/week: 25.0 - 28.0 standard drinks of alcohol Types: 25 - 28 Cans of Beer (12oz) per week Comment: 05/27/19 down to 1-3 beers per day Drug use: No FAMILY HISTORY Problem Relation Age of Onset Hypertension Father Stroke Father Diabetes Father Type 2 Lipids Mother Headache Mother Cancer Mother lung MEDICATIONS: BABY ASPIRIN ORAL Take 81 mg by mouth once daily. fluticasone-salmeterol (ADVAIR, WIXELA) 250-50 mcg/dose inhaler Inhale 1 Puff as instructed two times a day. albuterol HFA (PROVENTIL HFA, VENTOLIN HFA) 90 mcg/actuation inhaler Inhale 2-4 Puffs as instructed every 2 hours as needed for wheezing/shortness of breath. alprazolam (XANAX ORAL) Take 1 tablet by mouth as needed. levothyroxine (SYNTHROID) 75 mcg tablet TAKE 1 TABLET BY MOUTH EVERY DAY verapamil SR (CALAN SR, ISOPTIN SR) 240 mg CR tablet Take 1 tablet by mouth once daily. predniSONE (DELTASONE) 10 mg tablet TAKE 6 TABS BY MOUTH ONCE ON DAY ONE, THEN DECREASE BY 1 TABLET EACH DAY UNTIL GONE 6-5-4-3-2-1 nicotine polacrilex (NICORETTE) 4 mg gum Take 1 Each by mouth as needed. (Patient not taking: Reported on 04/03/2021 ) ALLERGIES: ALLERGIES Allergen Reactions Augmentin [Amoxicil* Swelling Severe facial swelling and hives REVIEW OF SYSTEM: Constitutional: No weight loss, malaise or fevers. HEENT: Negative for frequent or significant headaches Respiratory: Negative for cough, wheezing, or shortness of breath Cardiovascular: Negative for chest pain, leg swelling or palpitations Gatrointestinal: Negative for abdominal discomfort, blood in stools or black stools or change in bowel habits Genitourinary: No history of dysuria, frequency, or incontinence Musculoskeletal: Negative for joint pain or swelling, back pain or muscle pain Endocrine: Negative for cold or heat intolerance, polyuria, polydipsia and goiter Hematology/Lymphatic: Negative for prolonged bleeding, bruising easily or swollen nodes Neurologic: No history or headaches, syncope, paralysis, seizures or tremors Integumentary: Negative for lesions, rash, and itching. PHYSICAL EXAM: VITALS: BP 153/102[LA[ Pulse 98 Temp (Src) 97.6 (Oral) Resp 16 Ht 5' 10.5 [WITH GYM SHOES ON[ (1.79m) Wt 137 lb 11.2 oz (62.5kg) SpO2 99% BMI 19.47 kg/(m^2). General: Alert and oriented, No acute distress, Healthy appearance Integumentary: Normal color, no rash, no lesions. HEENT: EOM, pupils equal, round and reactive. Right neck supple with mobile skin. Left neck with some evidence of radiation changes but still mobile skin. Cardiovascular: Normal S1 & S2, no rubs, murmurs or gallops. No JVD., Pulse regular. Lungs: Normal breath sounds, no wheezes or crackles. Abdomen: Soft, non-tender, no rigidity. Extremities: No deformity, no edema or tenderness, no joint swelling or clubbing. Neurological: Normal cognition and motor skills. Diagnostic tests reviewed for today's visit: Most recent imaging with CTA reviewed >70% stenosis bilaterally IMPRESSION: Mr. Grey is a 58 year old male with bilateral SHANELLE possible 2/2 radiation. PLAN and RECOMMENDATIONS: After review and extensive discussion, will plan for bilateral carotid endarterectomy starting with the left side Recommend smoking cessation Continue ASA and blood pressure control, patient requesting changing his regimen as the increased dose of Verapamil does not agree with him Will start high dose, high intensity statin prior to surgery Preoperative workup with ECHO SIGNATURE: Kit Munguia MD PATIENT NAME: Priyanka Grey DATE: October 03, 2023 TIME: 11:18 AM documented in this encounter [facility] 09-24-2023 Miscellaneous Notes Reviewed PET does not look FDG avid in bone lesion, checking with radioilogy proper imaging follow-up. Discussed with patient findings. Bilateral carotid stenosis on carotid ultrasound - referring to vascular surgery he has no symptoms of TIA or stroke recently or in past. Recommended starting 81 mg ASA Chris Moscoso MD documented in this encounter [facility] 09-22-2023 Note HNO ID: [id number] Author: Jose Enrique Becerra RT(R) Service: Nuclear Medicine Author Type: Technologist Type: Progress Notes Filed: 09/22/2023 8:16 AM Note Text: RADIOLOGY SERVICE PROGRESS NOTE SERVICE DATE: 09/22/2023 SERVICE TIME: 8:15 AM PATIENT IDENTITY VERIFICATION COMPLETED USING TWO (2) STANDARD IDENTIFIERS: Name and Date of confirmed by patient verbally FALL SCREENING: Has the patient had 2 falls in the last year or 1 fall with injury or currently using an Ambulatory Assistive Device (Walker, Cane, Wheelchair, Crutches, etc.)? No PATIENT GENDER DATA: .male ALLERGIES: NA MEDICATIONS REVIEWED: Not applicable PATIENT RELEVANT IMPLANT DATA REVIEWED: Not Applicable CREATININE: Creatinine Date Value Ref Range Status 10/29/2019 1.31 (H) 0.73 - 1.22 mg/dL Final 06/15/2019 0.71 (L) 0.73 - 1.22 mg/dL Final 06/14/2019 0.75 0.73 - 1.22 mg/dL Final eGFR-All Other Races Date Value Ref Range Status 10/29/2019 57 . Final Comment: eGFR (Estimated GFR) Units of measure: mL/min/1.73 meters squared eGFR is derived from the reexpressed MDRD Study equation using the following parameters: serum creatinine, age, gender and race. The creatinine assay has been calibrated to be traceable to IDMS. An eGFR <60 mL/min/1.73m2 for >3 months is consistent with chronic kidney disease. Refer to KDOQI guidelines for clinical interpretation. In patients with unstable renal function, e.g. those with acute kidney injury, the eGFR may not accurately reflect actual GFR. eGFR- Date Value Ref Range Status 10/29/2019 >60 Final P.O.C.T. RESULTS: N/A September 22, [address] PERFORMED: No IV SITE: Ambulatory: NM only - direct IV injection in the Right antecubital site POST EXAM PIV STATUS: Discontinued PROCEDURE TYPE: NM INJECT: PET/CT BODY SCAN. 10 mCi F18 FDG. No other medications given.. ADMINISTRATION TIME: 08 PATIENT DISCHARGED TO: Ambulatory patient, left [place] department area. A Diagnostic radioactive procedure has taken place, with no further precautions necessary other than routine body substance precautions. More information regarding radiation safety can be found using this link: [email or web address] %[email or web address]%20Nuclear%20M edicine%20Procedures.[email or web address] SIGNATURE: RT Sofia(R) PATIENT NAME: Priyanka Grey DATE: September 22, 2023 TIME: 8:15 AM PAGER/CONTACT #: [facility] 09-22-2023 History of Presen t illness Narrative RADIOLOGY SERVICE PROGRESS NOTE SERVICE DATE: 09/22/2023 SERVICE TIME: 8:15 AM PATIENT IDENTITY VERIFICATION COMPLETED USING TWO (2) STANDARD IDENTIFIERS: Name and Date of confirmed by patient verbally FALL SCREENING: Has the patient had 2 falls in the last year or 1 fall with injury or currently using an Ambulatory Assistive Device (Walker, Cane, Wheelchair, Crutches, etc.)? No PATIENT GENDER DATA: .male ALLERGIES: NA MEDICATIONS REVIEWED: Not applicable PATIENT RELEVANT IMPLANT DATA REVIEWED: Not Applicable CREATININE: Creatinine Date Value Ref Range Status 10/29/2019 1.31 (H) 0.73 - 1.22 mg/dL Final 06/15/2019 0.71 (L) 0.73 - 1.22 mg/dL Final 06/14/2019 0.75 0.73 - 1.22 mg/dL Final eGFR-All Other Races Date Value Ref Range Status 10/29/2019 57 . Final Comment: eGFR (Estimated GFR) Units of measure: mL/min/1.73 meters squared eGFR is derived from the reexpressed MDRD Study equation using the following parameters: serum creatinine, age, gender and race. The creatinine assay has been calibrated to be traceable to IDMS. An eGFR <60 mL/min/1.73m2 for >3 months is consistent with chronic kidney disease. Refer to KDOQI guidelines for clinical interpretation. In patients with unstable renal function, e.g. those with acute kidney injury, the eGFR may not accurately reflect actual GFR. eGFR- Date Value Ref Range Status 10/29/2019 >60 Final P.O.C.T. RESULTS: N/A September 22, [address] PERFORMED: No IV SITE: Ambulatory: NM only - direct IV injection in the Right antecubital site POST EXAM PIV STATUS: Discontinued PROCEDURE TYPE: NM INJECT: PET/CT BODY SCAN. 10 mCi F18 FDG. No other medications given.. ADMINISTRATION TIME: 808 PATIENT DISCHARGED TO: Ambulatory patient, left [place] department area. A Diagnostic radioactive procedure has taken place, with no further precautions necessary other than routine body substance precautions. More information regarding radiation safety can be found using this link: [email or web address]-%20Diagnostic% 20Nuclear%20Medicine%20Procedur es.pdf SIGNATURE: EVER Black) PATIENT NAME: Priyanka Grey DATE: September 22, 2023 TIME: 8:15 AM PAGER/CONTACT #: documented in this encounter [facility] 07-25-2023 Note HNO ID: [id number] Author: Nona Chavez RT (R) Service: ? Author Type: Game Advisor Type: Progress Notes Filed: 07/25/2023 3:14 PM Note Text: Radiology Service Progress Note DATE OF SERVICE: July 25, 2023 TIME: 3:14 PM PATIENT IDENTITY VERIFICATION COMPLETED USING TWO (2) STANDARD IDENTIFIERS: Name and Date of confirmed by patient verbally. FALL SCREENING: Has the patient had 2 falls in the last year or 1 fall with injury or currently using an Ambulatory Assistive Device (Walker, Cane, Wheelchair, Crutches, etc.)? No PATIENT GENDER DATA: Male PATIENT RELEVANT IMPLANT DATA REVIEWED: Yes ALLERGIES: Reviewed and unchanged CONTRAST ALLERGY: NO. EXAM: CT -CONTRAST INDUCED NEPHROPATHY RISK FACTORS: Not applicable CREATININE: Creatinine Date Value Ref Range Status 10/29/2019 1.31 (H) 0.73 - 1.22 mg/dL Final 06/15/2019 0.71 (L) 0.73 - 1.22 mg/dL Final 06/14/2019 0.75 0.73 - 1.22 mg/dL Final eGFR-All Other Races Date Value Ref Range Status 10/29/2019 57 . Final Comment: eGFR (Estimated GFR) Units of measure: mL/min/1.73 meters squared eGFR is derived from the reexpressed MDRD Study equation using the following parameters: serum creatinine, age, gender and race. The creatinine assay has been calibrated to be traceable to IDMS. An eGFR <60 mL/min/1.73m2 for >3 months is consistent with chronic kidney disease. Refer to KDOQI guidelines for clinical interpretation. In patients with unstable renal function, e.g. those with acute kidney injury, the eGFR may not accurately reflect actual GFR. eGFR- Date Value Ref Range Status 10/29/2019 >60 Final P.O.C.T. RESULTS: POC done: Yes, See Lab Tab July 25, 2023 TREATMENT: N/A PERIPHERAL IV DATA: Ambulatory: A peripheral IV was started in the Left antecubital site with a Angio cath: 22 gauge. RADIOLOGY DEPARTMENT: CT; Exam(s) Completed: Chest and Neck SIGNATURE: RT Alta(R) PATIENT NAME: Priyanka Grey DATE: July 25, 2023 TIME: 3:14 PM [facility] 03-27-2023 Note HNO ID: [id number] Author: Chris Moscoso MD Service: ? Author Type: Physician Type: Progress Notes Filed: 05/04/2023 11:40 PM Note Text: [facility] Note CC: oncologic surveillance Last clinic visit on 04/03/2021 HPI: Patient is a 57 year old male with a history of adenocarcinoma in situ of the left lung and underwent a left upper lobe lobectomy, and left tonsil [id number] SCCA p 16 positive s/p 70 Gy with concurrent cisplatin completed 05/27/16 who presents today for cancer surveillance follow up. In December he was having difficulty breathing with a productive cough and was ultimately diagnosed with COPD recently and started Advair in addition to his albuterol 3 weeks ago, which has improved his breathing. He follows with his PCP and has not seen pulmonology since his lobectomy in 2017. Otherwise he has been doing well. At his last visit he was having neck stiffness likely secondary to post-radiation changes. He went to physical therapy once and does some exercises at home with improvement. He has cut back on smoking to 6 cigarettes per day with the goal to quit. Current Outpatient Medications Medication Sig Dispense Refill - fluticasone-salmeterol (ADVAIR, WIXELA) 250-50 mcg/dose inhaler - predniSONE (DELTASONE) 10 mg tablet TAKE 6 TABS BY MOUTH ONCE ON DAY ONE, THEN DECREASE BY 1 TABLET EACH DAY UNTIL GONE 6-5-4-3-2-1 - albuterol HFA (PROVENTIL HFA, VENTOLIN HFA) 90 mcg/actuation inhaler Inhale 2-4 Puffs as instructed every 2 hours as needed for wheezing/shortness of breath. 8 g 0 - alprazolam (XANAX ORAL) Take by mouth. - levothyroxine (SYNTHROID) 75 mcg tablet TAKE 1 TABLET BY MOUTH EVERY DAY 90 tablet 3 - verapamil SR (CALAN SR, ISOPTIN SR) 240 mg CR tablet Take 1 tablet by mouth once daily. 30 tablet 0 - nicotine polacrilex (NICORETTE) 4 mg gum Take 1 Each by mouth as needed. (Patient not taking: Reported on 04/03/2021 ) 140 Each 1 No current facility-administered medications for this visit. EXAM: Constitutional - General Appearance: well developed, well nourished, without obvious deformities Communication: speaks with a normal voice without hoarseness Head AND Face - Overall: no obvious scars, lesions or masses Parotid and submandibular glands: no masses or tenderness Facial strength: normal and equal bilaterally Ear, Nose, Mouth AND Throat - Ears: both left and right external auditory canals and TM's are normal, no external deformities Nasal exam: mucosa is pink, septum is deviated to the left, visible turbinates are normal on anterior rhinoscopy Mastication: teeth appear age appropriate Oral Cavity and oropharynx: mucosa, hard and soft palates, tongue, tonsil area, posterior pharyngeal wall, lips and gums are without lesions Neck: post-radiation skin changes, appears symmetric, and on palpation is without masses or lymphadenopathy Thyroid: no asymmetry, thyromegaly, or thyroid nodules on palpation Neuro: CN III - CN XII grossly intact Procedure: Flexible laryngoscopy was performed because of the following indication: Poor visualization with mirror and/or the need for high resolution imaging of laryngeal function and dynamic airway. After spraying the nose with xylocaine/neosynephrine, the flexible scope was placed in a transnasal fashion. The nasopharynx, oropharynx, hypopharynx including the pyriform sinuses were normal. The base of tongue showed no gross lesions. The larynx itself showed no lesions. Right VC motion: full Left VC motion: full Closure: complete I was physically present during the entire procedure including insertion and removal of scope. Chris Moscoso MD IMAGING: CT neck 04/11/2021: IMPRESSION: No evidence of neck mass or lymphadenopathy. No pathologic enhancement. CT chest 04/11/2021: IMPRESSION: No CT evidence of acute abnormality. Postsurgical and chronic changes. ASSESSMENT: Mr. Grey is a 57 year old male with a history of adenocarcinoma in situ of the left lung and underwent a left upper lobe lobectomy, and left tonsil [id number] SCCA p 16 positive s/p 70 Gy with concurrent cisplatin completed 05/27/16 who presents today for cancer surveillance follow up. Flexible laryngoscopy today showed no evidence of recurrent disease. Discussed that he may want to follow with a statistical methods teacher for his history of lung cancer and recent diagnosis of COPD, and he plans to make an appointment closer to home in [place], [place]. PLAN AND RECOMMENDATIONS: Flexible laryngoscopy today CT neck and chest Follow-up in 1 year Vilma Fracno MD For the service of Chris Moscoso MD Otolaryngology Staff Attestation Medical Decision Making: Problems: Low: Stable chronic illness Data: Unique test result(s) reviewed: 1 Unique test(s) ordered: 2 Medical Decision Making Level: 3 - Low Details as per Dr. Franco's note which I have reviewed and edited. I performed a history and physical examination of the patient (more content not included)... 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 In December he was having difficulty breathing with a productive cough and was ultimately diagnosed with COPD recently and started Advair in addition to his albuterol 3 weeks ago, which has improved his breathing. He follows with his PCP and has not seen pulmonology since his lobectomy in 2018. Otherwise he has been doing well. At his last visit he was having neck stiffness likely secondary to post-radiation changes. He went to physical therapy once and does some exercises at home with improvement. He has cut back on smoking to 6 cigarettes per day with the goal to quit. Current Outpatient Medications Medication Sig Dispense Refill fluticasone-salmeterol (ADVAIR, WIXELA) 250-50 mcg/dose inhaler predniSONE (DELTASONE) 10 mg tablet TAKE 6 TABS BY MOUTH ONCE ON DAY ONE, THEN DECREASE BY 1 TABLET EACH DAY UNTIL GONE 6-5-4-3-2-1 albuterol HFA (PROVENTIL HFA, VENTOLIN HFA) 90 mcg/actuation inhaler Inhale 2-4 Puffs as instructed every 2 hours as needed for wheezing/shortness of breath. 8 g 0 alprazolam (XANAX ORAL) Take by mouth. levothyroxine (SYNTHROID) 75 mcg tablet TAKE 1 TABLET BY MOUTH EVERY DAY 90 tablet 3 verapamil SR (CALAN SR, ISOPTIN SR) 240 mg CR tablet Take 1 tablet by mouth once daily. 30 tablet 0 nicotine polacrilex (NICORETTE) 4 mg gum Take 1 Each by mouth as needed. (Patient not taking: Reported on 04/03/2021 ) 140 Each 1 No current facility-administered medications for this visit. EXAM: Constitutional - General Appearance: well developed, well nourished, without obvious deformities Communication: speaks with a normal voice without hoarseness Head & Face - Overall: no obvious scars, lesions or masses Parotid and submandibular glands: no masses or tenderness Facial strength: normal and equal bilaterally Ear, Nose, Mouth & Throat - Ears: both left and right external auditory canals and TM's are normal, no external deformities Nasal exam: mucosa is pink, septum is deviated to the left, visible turbinates are normal on anterior rhinoscopy Mastication: teeth appear age appropriate Oral Cavity and oropharynx: mucosa, hard and soft palates, tongue, tonsil area, posterior pharyngeal wall, lips and gums are without lesions Neck: post-radiation skin changes, appears symmetric, and on palpation is without masses or lymphadenopathy Thyroid: no asymmetry, thyromegaly, or thyroid nodules on palpation Neuro: CN III - CN XII grossly intact Procedure: Flexible laryngoscopy was performed because of the following indication: Poor visualization with mirror and/or the need for high resolution imaging of laryngeal function and dynamic airway. After spraying the nose with xylocaine/neosynephrine, the flexible scope was placed in a transnasal fashion. The nasopharynx, oropharynx, hypopharynx including the pyriform sinuses were normal. The base of tongue showed no gross lesions. The larynx itself showed no lesions. Right VC motion: full Left VC motion: full Closure: complete I was physically present during the entire procedure including insertion and removal of scope. Chris Moscoso MD IMAGING: CT neck 04/11/2021: IMPRESSION: No evidence of neck mass or lymphadenopathy. No pathologic enhancement. CT chest 04/11/2021: IMPRESSION: No CT evidence of acute abnormality. Postsurgical and chronic changes. ASSESSMENT: Mr. 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 Flexible laryngoscopy today showed no evidence of recurrent disease. Discussed that he may want to follow with a statistical methods teacher for his history of lung cancer and recent diagnosis of COPD, and he plans to make an appointment closer to home in [place], [place]. PLAN AND RECOMMENDATIONS: Flexible laryngoscopy today CT neck and chest Follow-up in 1 year Vilma Franco MD For the service of Chris Moscoso MD Otolaryngology Staff Attestation Medical Decision Making: Problems: Low: Stable chronic illness Data: Unique test result(s) reviewed: 1 Unique test(s) ordered: 2 Medical Decision Making Level: 3 - Low Details as per Dr. Franco's note which I have reviewed and edited. I performed a history and physical examination of the patient and discussed the patient's management with the resident. I agree with the documented findings and treatment plan. Chris Moscoso MD documented in this encounter [facility] 03-27-2023 Nurse Note Tobacco Use: 1 packs/day, for 15 years. Types: Cigarettes (pack per day) Was smoking cessation packet given? N/A - Patient is a non-smoker or quit >1 year ago. Was a referral initiated?N/A Patient is a non-smoker, documented in this encounter [facility] documented as of this encounter (statuses as of 05/05/2023) [facility]2016 History of Past illness Narrative* Problem Noted Date Diagnosed Date Resolved Date Radiotherapy follow-up 10/02/201604/26 documented as of this encounter (statuses as of 08/26/2023) [facility] History of Past illness Narrative* Problem Noted Date Diagnosed Date Resolved Date Radiotherapy follow-up 10/02/201604/26 documented as of this encounter (statuses as of 09/23/2023) [facility]2016 History of Past illness Narrative* Problem Noted Date Diagnosed Date Resolved Date Radiotherapy follow-up 10/02/201604/26 documented as of this encounter (statuses as of 09/23/2023) [facility]2016 History of Past illness Narrative* Problem Noted Date Diagnosed Date Resolved Date Radiotherapy follow-up 10/02/201604/26 documented as of this encounter (statuses as of 09/24/2023) [facility]2016 History of Past illness Narrative* Problem Noted Date Diagnosed Date Resolved Date Radiotherapy follow-up 10/02/201604/26 documented as of this encounter (statuses as of 10/01/2023) [address]30-2016 History of Past illness Narrative* Problem Noted Date Diagnosed Date Resolved Date Radiotherapy follow-up 10/02/201604/26 documented as of this encounter (statuses as of 10/04/2023) [facility]2016 History of Past illness Narrative* Problem Noted Date Diagnosed Date Resolved Date Radiotherapy follow-up 10/02/201604/26 documented as of this encounter (statuses as of 10/06/2023) [facility]2016 History of Past illness Narrative* Problem Noted Date Diagnosed Date Resolved Date Radiotherapy follow-up 10/02/201604/26 documented as of this encounter (statuses as of 10/07/2023) [facility]2016 History of Past illness Narrative* Problem Noted Date Diagnosed Date Resolved Date Radiotherapy follow-up 10/02/201604/26 documented as of this encounter (statuses as of 10/15/2023) [facility] Diagnosis Tonsil cancer (HCC)- Primary Malignant neoplasm of tonsil Lung nodules Other nonspecific abnormal finding of lung field [facility] Diagnosis Bilateral carotid artery stenosis- Primary Occlusion and stenosis of carotid artery without mention of cerebral infarction [facility] Diagnosis Disorder of bone Disorder of bone and cartilage, unspecified [facility] Diagnosis Occlusion and stenosis of unspecified carotid artery- Primary [facility] Diagnosis Bilateral carotid artery stenosis- Primary Occlusion and stenosis of carotid artery without mention of cerebral infarction [facility] Diagnosis Preop testing- Primary Preoperative examination, unspecified Carotid stenosis, asymptomatic, bilateral documented in this encounter [facility] for referral (narrative)* Outpatient Procedure (Routine) - Pending Review Specialty Diagnoses / Procedures Referred By Simón molina Referred To [facility] Diagnoses Bilateral carotid artery stenosis Procedures US CAROTID ARTERIES [facility] DUPLEX SCAN EXTRACRANIAL ART COMPL BI STUDY Chris Moscoso MD [address] [place] [address] [facility] [place] [address] [place] [address] Referral ID Status Reason Start Date Expiration Date Visits Requested Visits Authorized [id number] Pending Review Auto-Generat ed Referral 3 08/24/2024 1 1 [facility] for referral (narrative)* Diagnostic Procedure Only (Routine) - Closed Specialty Diagnoses / Procedures Referred By Simón molina Referred To Contact MOLECULAR & FUNCTIONAL IMAGING Diagnoses Disorder of bone Procedures NM PET/CT SKULL-THIGH SUBSEQUENT PET IMAGING CT ATTENUATION SKULL BASE MID-THIGH Chris Moscoso MD [address] [place] [id number] Molecular & Functional Imaging [address] [place] [address] Referral ID Status Reason Start Date Expiration Date V isits Requested Visits Authorized [id number] Closed Auto-Generate d Referral 09/05/2023 10/19/2023 1 1 [facility] for referral (narrative)* Outpatient Procedure (Routine) - Authorized Specialty Diagnoses / Procedures Referred By Simón molina Referred To Contact [facility]ART [facility] Diagnoses Preop testing Carotid stenosis, asymptomatic, bilateral Procedures ECHO ECHO TTHRC R-T 2D W/WOM-MODE COMPL SPEC&COLR D Kit Munguia MD [address] [place] [address] [facility] [place] [address] Referral ID Status Reason Start Date Expiration Date Visits Requested Visits Authorized [id number] Authorized Auto-Generat ed Referral 10/06/2023 10/05/2024 1 1 [facility] for visit Narrative* Diagnostic Procedure Only (Routine) - Closed Specialty Diagnoses / Procedures Referred By Simón molina Referred To Contact MOLECULAR & FUNCTIONAL IMAGING Diagnoses Disorder of bone Procedures NM PET/CT SKULL-THIGH SUBSEQUENT PET IMAGING CT ATTENUATION SKULL BASE MID-THIGH Chris Moscoso MD [address] [place] [address] Molecular & Functional Imaging [address] [place] [address] Referral ID Status Reason Start Date Expiration Date V isits Requested Visits Authorized [id number] Closed Auto-Generate d Referral 09/05/2023 10/19/2023 1 1 [facility] Summary Purpose Family History No Family History Records FoundNo Family History Records FoundNo Family History Records Found Advance Directives No Advanced Directives Records FoundDocuments on File Type Date Recorded 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 Advance Directive(s) 06/17/2019 5:32 PM Documents on File Type Date Recorded 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 Advance Directive(s) 06/17/2019 5:32 PM Reason for Referral Specialty Diagnoses / Procedures Referred By Contac t Referred To Contact CT IMAGING Diagnoses Tonsil cancer (HCC) Lung nodules Procedures CT CHEST W IVCON DIAGNOSTIC COMPUTED TOMOGRAPHY THORAX W/CONTRAST Chris Moscoso MD [address] [facility] [place] [address] Ct Imaging Referral ID Status Reason Start Date Expiration Date Visits Requested Visits Authorized [id number] Pending Review Auto-Generat ed Referral 03/27/2023 04/25/2024 1 1 Specialty Diagnoses / Procedures Referred By Contac t Referred To Contact CT IMAGING Diagnoses Tonsil cancer (HCC) Procedures CT NECK SOFT TISSUE W IVCON CT SOFT TISSUE NECK W/CONTRAST MATERIAL Chris Moscoso MD [address] [place] [address] Ct Imaging Referral ID Status Reason Start Date Expiration Date Visits Requested Visits Authorized [id number] Pending Review Auto-Generat ed Referral 03/27/2023 04/25/2024 1 1 Specialty Diagnoses / Procedures [facility] Referred To Contact Vascular Surgery Diagnoses Bilateral carotid artery stenosis Procedures CONSULT TO VASCULAR SURGERY OFFICE/OUTPATIENT [facility] 60-74 MINUTES Chris Moscoso MD [address] [phone] Referral ID Status Reason Start Date Expiration Date Visits Requested Visits Authorized [id number] Authorized PCP Requested Referral 3 09/23/2024 1 1 Specialty Diagnoses / Procedures Referred [facility] Referred To Contact CT IMAGING Diagnoses Occlusion and stenosis of unspecified carotid artery Procedures CTA NECK W IVCON CT ANGIOGRAPHY NECK W/CONTRAST/NONCONTRAST Kit Munguia MD [address] [place] [address] Ct [facility] [place] [address] Referral ID Status Reason Start Date Expiration Date Visits Requested Visits Authorized [id number] Authorized Auto-Generat ed Referral 3 11/15/2023 1 1 Specialty Diagnoses / Procedures Referred By Simón t Referred To Contact CT IMAGING Diagnoses Occlusion and stenosis of unspecified carotid artery Procedures CTA HEAD WO/W IVCON CT ANGIOGRAPHY HEAD W/CONTRAST/NONCONTRAST Kit Munguia MD [address] [place] [id number] Ct Imaging [id number] Referral ID Status Reason Start Date Expiration Date Visits Requested Visits Authorized [id number] Authorized Auto-Generat ed Referral 3 11/15/2023 1 1 Additional Source Comments (unrecognized sect ion and content) No Status Records FoundNo Status Records FoundNo Status Records Found INFORMATION SOURCE (unrecogn ized section and content) DATE CREATED AUTHOR AUTHOR'S ORGANIZ ATION 09/23/2023 [facility] DATE CREATED AUTHOR AUTHOR'S ORGANIZ ATION 11/18/2023 [facility] Source Comments (unrecognize d section and content) In the event this informatio n is protected by the Federal Confidentiality of Alcohol and Drug Abuse Patient Records regulations: The Federal rules restrict any use of the information to criminally investigate or prosecute any alcohol or drug abuse patient.[facility] the event this information is protected by the Federal Confidentiality of Alcohol and Drug Abuse Patient Records regulations: The Federal rules restrict any use of the information to criminally investigate or prosecute any alcohol or drug abuse patient.[facility] HealthcareIn the event this information is protected by the Federal Confidentiality of Alcohol and Drug Abuse Patient Records regulations: The Federal rules restrict any use of the information to criminally investigate or prosecute any alcohol or drug abuse patient.[facility] HealthcareIn the event this information is protected by the Federal Confidentiality of Alcohol and Drug Abuse Patient Records regulations: The Federal rules restrict any use of the information to criminally investigate or prosecute any alcohol or drug abuse patient.[facility] HealthcareIn the event this information is protected by the Federal Confidentiality of Alcohol and Drug Abuse Patient Records regulations: The Federal rules restrict any use of the information to criminally investigate or prosecute any alcohol or drug abuse patient.[facility] HealthcareIn the event this information is protected by the Federal Confidentiality of Alcohol and Drug Abuse Patient Records regulations: The Federal rules restrict any use of the information to criminally investigate or prosecute any alcohol or drug abuse patient.[facility] HealthcareIn the event this information is protected by the Federal Confidentiality of Alcohol and Drug Abuse Patient Records regulations: The Federal rules restrict any use of the information to criminally investigate or prosecute any alcohol or drug abuse patient.[facility] HealthcareIn the event this information is protected by the Federal Confidentiality of Alcohol and Drug Abuse Patient Records regulations: The Federal rules restrict any use of the information to criminally investigate or prosecute any alcohol or drug abuse patient.[facility] HealthcareIn the event this information is protected by the Federal Confidentiality of Alcohol and Drug Abuse Patient Records regulations: The Federal rules restrict any use of the information to criminally investigate or prosecute any alcohol or drug abuse patient.[facility] HealthcareIn the event this information is protected by the Federal Confidentiality of Alcohol and Drug Abuse Patient Records regulations: The Federal rules restrict any use of the information to criminally investigate or prosecute any alcohol or drug abuse patient.[facility] Reason for Visit (unrecogniz ed section and content) Reason Comments Radiology NM Reason Comments Consult Specialty Diagnoses / Procedures Referred By Contac t Referred To Contact Vascular Surgery Diagnoses Bilateral carotid artery stenosis Procedures CONSULT TO VASCULAR SURGERY OFFICE/OUTPATIENT [facility] HIGH MDM 60-74 MINUTES Chris Moscoso MD [address] [place] [address] Referral ID Status Reason Start Date Expiration Date V isits Requested Visits Authorized [id number] Closed PCP Requested Referral 09/24/2023 09/23/2024 1 1 Reason Comments Appointment Reason Comments Schedule Surgery Care Teams (unrecognized sec tion and content) Crm Technical Lead Relationship Specialty Start Date End Date Sandro Garcia MD [address] [phone] PCP - General 04/05/04 Cindy Galicia, DIRK [address] [place] [address] Specialty Medical Service Representative Hematology/Oncology 10/04/16 Walter Cruz [address] [place] [address] Physician Hematology/Oncology 10/04/16 [place] [address] [place] [address] Physician Radiation Oncology 04/01/19 Walter Cruz [address] [place] [address] Referring Hematology/Oncology 04/02/19 Crm Technical Lead Relationship Specialty Start Date End Date Sandro Garcia MD [address] [phone] PCP - General 04/05/04 Cindy Galicia RN [address] [place], [place] [phone] Specialty Medical Service Representative Hematology/Oncology 10/04/16 Walter Cruz [address] [place] [address] Physician Hematology/Oncology 10/04/16 [place] [address] [place] [address] Physician Radiation Oncology 04/01/19 Walter Cruz [address] [place] [address] Referring Hematology/Oncology 04/02/19 Crm Technical Lead Relationship Specialty Start Date End Date Sandro Garcia MD [address] [place] [address] PCP - General 04/05/04 Cindy Galicia RN [address] [place] [address] Specialty Medical Service Representative Hematology/Oncology 10/04/16 Walter Cruz [address] [place] [address] Physician Hematology/Oncology 10/04/16 [place] [address] [place] [address] Physician Radiation Oncology 04/01/19 Walter Cruz [address] [place] [address] Referring Hematology/Oncology 04/02/19 Crm Technical Lead Relationship Specialty Start Date End Date Sandro Garcia MD [address] [phone] PCP - General 04/05/04 Cindy Galicia RN [address] [place] [address] Specialty Medical Service Representative Hematology/Oncology 10/04/16 Walter Cruz [address] [place] [address] Physician Hematology/Oncology 10/04/16 [place] [address] [place] [address] Physician Radiation Oncology 04/01/19 Walter Cruz [address] [place] [address] Referring Hematology/Oncology 04/02/19 Crm Technical Lead Relationship Specialty Start Date End Date Sandro Garcia MD [facility] [address] PCP - General 04/05/04 Cindy Galicia RN [address] [place] [address] Specialty Medical Service Representative Hematology/Oncology 10/04/16 Walter Cruz [address] [place] [address] Physician Hematology/Oncology 10/04/16 [place] [address] [place] [address] Physician Radiation Oncology 04/01/19 Walter Cruz [address] [place] [address] Referring Hematology/Oncology 04/02/19 Crm Technical Lead Relationship Specialty Start Date End Date Sandro Garcia MD [facility] [address] PCP - General 04/05/04 Cindy Galicia RN [address] [place] [address] Specialty Medical Service Representative Hematology/Oncology 10/04/16 Walter Cruz [address] [place] [address] Physician Hematology/Oncology 10/04/16 [place] [address] [place] [address] Physician Radiation Oncology 04/01/19 Walter Cruz [address] [facility] [address] Referring Hematology/Oncology 04/02/19 Crm Technical Lead Relationship Specialty Start Date End Date Sandro Garcia MD [address] [place] [address] PCP - General 04/05/04 Cindy Galicia RN [address] [place] [address] Specialty Medical Service Representative Hematology/Oncology 10/04/16 Walter Cruz [address] [place] [address] Physician Hematology/Oncology 10/04/16 [place] [address] [place] [address] Physician Radiation Oncology 04/01/19 Walter Cruz [address] [place] [address] Referring Hematology/Oncology 04/02/19 FOR RECORDS PERTAINING TO PATIENTS WHO ARE OR HAVE BEEN ENROLLED IN A CHEMICAL DEPENDENCY/SUBSTANCEABUSE PROGRAM, SOME INFORMATION MAY BE OMITTED. This clinical summary was aggregated from multiple sources. Caution should be exercised in using it in the provision of clinical care. This summary normalizes information from multiple sources, and as a consequence, information in this document may materially change the coding, format and clinical context of patient data. In addition, data may be omitted in some cases. CLINICAL DECISIONS SHOULD BE BASED ON THE PRIMARY CLINICAL RECORDS. [employer] [facility]. provides no warranty or guarantee of the accuracy or completeness of information in this document.
--- NOTE | 2023-11-19 12:06 | EX.ED.DYSGE1 ---
HPI History of Present Illness Chief Complaint: Hypertension Narrative Narrative: Patient is a 58-year-old male who is presenting to the ER with chief complaint of elevated blood pressure. Patient had a left carotid enterectomy procedure done Friday and was discharged Friday from the [facility] by Dr Adames. Patient is due to have a right carotid artery procedure in the future. Patient had elevated blood pressure last evening and this morning. Patient has baseline underlying anxiety. Patient states that the situation is making his anxiety much worse. Patient called the office of the vascular surgeon and was told to come to the ER to get his blood pressure lowered. Patient currently takes losartan 100 mg and verapamil [address] Rosa, patient has had elevated blood pressure medication done in the last month and patient is blood pressure has improved and has been good enough to have his surgery on Friday. Patient has no symptoms besides anxiety at this time. Patient has no headache, chest pain, shortness of breath. No nausea or vomiting. Patient has no other acute complaints at this time. Patient's and daughter at bedside [facility] Medical History (Updated 11/19/23 @ 14:[address] José Luis Smith, DO) Acquired hypothyroidism Atelectasis Carotid stenosis Centrilobular emphysema Hypertension Home Medications albuterol sulfate 90 mcg/actuation aerosol inhaler 2 puff inhalation Q2H PRN shortness of breath or wheezing 11/19/23 [History Last Taken Unknown] alprazolam 0.5 mg tablet 0.5 mg PO DAILY PRN anxiety 11/19/23 [History Last Taken Unknown] aspirin 81 mg tablet,delayed release (Adult Low Dose Aspirin) 81 mg PO DAILY 11/19/23 [History Last Taken Unknown] atorvastatin 80 mg tablet 80 mg PO DAILY 11/19/23 [History Last Taken Unknown] fluticasone 250 mcg-salmeterol 50 mcg/dose blistr powdr for inhalation 1 inh inhalation Q12H 11/19/23 [History Last Taken Unknown] levothyroxine 75 mcg tablet 75 mcg PO DAILY 11/19/23 [History Last Taken Unknown] losartan 100 mg tablet 100 mg PO DAILY 11/19/23 [History Last Taken 11/19/23] verapamil 240 mg 24 hr capsule,extended release 240 mg PO DAILY 11/19/23 [History Last Taken Unknown] Allergy/AdvReac Type Severity Reaction Status Date / Time amoxicillin [From Augmentin] Allergy Severe Anaphylaxis Verified 11/19/23 10:54 clavulanic acid Allergy Severe Anaphylaxis Verified 11/19/23 10:54 [From Augmentin] rocuronium Allergy Severe Anaphylaxis Verified 11/19/23 10:54 Surgical History (Updated 11/19/23 @ 11:19 by Deanna Luke) History of left-sided carotid endarterectomy Social History Smoking Status: Former smoker ROS ROS ED ROS Narrative REVIEW OF SYSTEMS: Unless otherwise stated in this report the patient's positive and negative responses for review of systems for constitutional, eyes, ENT, cardiovascular, respiratory, gastrointestinal, neurological, , musculoskeletal, and integument systems and related systems to the presenting problem are either stated in the history of present illness or were not pertinent or were negative for the symptoms and/or complaints related to the presenting medical problem. EXAM Physical Exam Narrative Exam Narrative: Vital signs reviewed and patient is not hypoxic. General: The patient appears well and in no apparent distress. Patient is resting comfortably on cart. Not toxic, lethargic, or listless. Patient is admittedly anxious. Skin: Warm, dry, no pallor noted. There is no rash noted. Patient surgical incision to left carotid is clean, dry, intact. No pulsatile mass, no signs of pseudoaneurysm. Head: Normocephalic, atraumatic Eye: Normal conjunctiva, no drainage, EOMI. PERRL. Ears, Nose, Mouth, and Throat: oral mucosa is moist. Nares patent. Mouth without vesicles. Cardiovascular: Regular Rate and Rhythm, no murmurs, gallops, or rubs Respiratory: Patient is in no distress, no accessory muscle use, lungs are clear to auscultation, no wheezing, rales or rhonchi Back: non-tender, no CVA tenderness bilaterally to percussion. NO CTLS midline or paraspinal tenderness to palpation. GI: Soft, no tenderness to palpation, no masses appreciated. No rebound, guarding, or rigidity noted. Musculoskeletal: The patient has full range of motion of all extremities and joints with no difficulty. Patient has no motor, no sensory deficits. Neurological: A&O x4, normal speech, no focal neurological deficits. Psychiatric: Cooperative, pATIENT IS ADMITTEDLY ANXIOUS. Const Vital Signs: 11/19/23 10:51 11/19/23 11:15 11/19/23 11:15 Temperature 96.7 F L Temperature Source Temporal Pulse Rate 74 87 Respiratory Rate 18 16 Respiratory Effort Normal Respiratory Pattern Normal Blood Pressure 219/118 H 212/110 H Blood Pressure Mean 151 144 Pulse Ox 100 100 Oxygen Delivery Method Room Air Room Air 11/19/23 12:36 11/19/23 12:30 11/19/23 12:59 Temperature Temperature Source Pulse Rate 82 Respiratory Rate 14 Respiratory Effort Respiratory Pattern Blood Pressure 192/98 H 192/94 H 192/98 H Blood Pressure Mean 129 126 129 Pulse Ox 99 Oxygen Delivery Method Room Air 11/19/23 13:00 11/19/23 13:30 11/19/23 13:45 Temperature Temperature Source Pulse Rate 87 78 79 Respiratory Rate 19 H 16 Respiratory Effort Respiratory Pattern Blood Pressure 136/88 H 146/85 H 151/92 H Blood Pressure Mean 104 105 111 Pulse Ox 99 99 Oxygen Delivery Method Room Air Room Air 11/19/23 14:00 11/19/23 14:15 11/19/23 14:28 Temperature Temperature Source Pulse Rate 80 84 84 Respiratory Rate 16 17 14 Respiratory Effort Respiratory Pattern Blood Pressure 152/90 H 150/84 H 150/84 H Blood Pressure Mean 110 106 106 Pulse Ox 100 95 98 Oxygen Delivery Method Room Air Room Air MDM MDM MDM Narrative Medical decision making narrative: Patient is admittedly anxious when he initially arrived. I have spoken to patient's vascular surgeon prior to patient discharge. Patient initially was given 1 mg of Ativan IV. Patient was going to be given a dose of labetalol which was not needed secondary to patient's blood pressure had improved. The conversation with patient's vascular surgeon was that patient should be observed for 1.5 hours after his pressure has normalized to Make sure that no other type of intervention needs to be done. He recommended to follow up with Dr. Rosa either today or tomorrow for blood pressure recheck and reassessment and medication changes as needed. Patient's is at bedside, she works in a dentist office. Patient is aware to continue taking his blood pressure medication as prescribed which was switched one week ago approximately to prepare for surgery. Patient does have Xanax at home to use if needed. At discharge, patient showed me his blood pressure log, he is taking his blood pressure 15-20 times a day approximately. Sometimes 4-5 times in 1 hour. Patient was recommended by his vascular surgeon as well to only check his blood pressure 3 or 4 times a day. If patients having any significant headache, vision changes, neck pain, shortness of breath or chest pain, patient is to call vascular surgeon or return to ER as needed. Patient is aware that he is checking his blood pressure multiple times a day. Patient tells me that the more he checks his blood pressure, it actually works in a reverse effect and will lower his blood pressure versus increasing if he checks his blood pressure multiple times. Patient has been completely asymptomatic in the ER. He has had no headache, vision changes, chest pain or shortness of breath. The patient has been observed for 3-4 hours in the ER secondary to recent left carotid artery endarterectomy along with hypertension. Patient has been on the continuous desk monitor with blood pressures every 15 minutes. Patient feels comfortable going home as does his . Patient vascular surgeon agrees the patient can go home and will follow up with PCP. Patient understands strict return precautions. No questions at discharge. Multiple visits of visits have been made to reassess patient's symptoms which have been completely negative along with his vital signs. Greater than 20 minutes total spent just that looking at the patient vital signs on monitor which has been continuous to make sure that he has not been hypertensive after Ativan has been given. Bilateral manual blood pressures were done. Critical care time 31 minutes exclusive from separate billable procedures that were performed. The following was considered in the determination of critical care but not limited to the level of medical decision making, intensive cardiac and/or respiratory monitoring, frequent vital sign monitoring, evaluation of laboratory studies, evaluation of radiographic studies, oxygen monitoring, and constant monitoring and speaking to family at bedside Lab Data Labs: Laboratory Results - last 24 hr 11/19/23 11/19/23 11:13 13:20 WBC 11.1 H RBC 4.13 L Hgb 13.1 Hct 36.0 L MCV 87.2 MCH 31.7 MCHC 36.4 H RDW Std Deviation 42.5 RDW Coeff of [place] 13.2 Plt Count 292 MPV 8.5 Immature Gran % (Auto) 0.500 Neut % (Auto) 77.5 H Lymph % (Auto) 11.1 L Lamb % (Auto) 10.3 H Eos % (Auto) 0.2 Baso % (Auto) 0.4 Absolute Neuts (auto) 8.6 H Absolute Lymphs (auto) 1.23 Nucleated RBC % 0 PT 13.5 INR 1.0 APTT 30.6 Sodium 126 L Potassium 3.1 L Chloride 88 L Carbon Dioxide 31.0 Anion Gap 7 BUN 7 Creatinine 0.92 Estim Creat Clear Calc 82.18 Est GFR (MDRD) Af Amer 109 Est GFR (MDRD) Non-Af 90 BUN/Creatinine Ratio 7.6 L Glucose 99 Calcium 9.1 Troponin I High Sens 11 14 B-Natriuretic Peptide 91.3 EKG Initial EKG: Attestation: I personally reviewed and interpreted this EKG as follows: (EKG interpretation. Normal sinus rhythm at 91 beats a minute. Normal axis deviation. No acute ST elevation, no acute ectopy. QTc of 445.) Discharge Plan Triage Chief Complaint: Hypertension ED Provider: José Luis Smith Dx/Rx/DC Orders Clinical Impression: Hypertension Instructions: ED Hypertension, Established Prescriptions: No Action albuterol sulfate 90 mcg/actuation HFA aerosol inhaler 2 puff INHALATION Q2H PRN (Reason: shortness of breath or wheezing) Patient Comments: INHALE 2 PUFFS BY MOUTH FOUR TIMES DAILY NEEDED atorvastatin 80 mg tablet 80 mg PO DAILY Patient Comments: TAKE 1 TABLET BY MOUTH EVERY DAY aspirin [Adult Low Dose Aspirin] 81 mg tablet,delayed release (DR/EC) 81 mg PO DAILY fluticasone propion-salmeterol 250-50 mcg/dose blister with device 1 inh INHALATION Q12H Patient Comments: INHALE ONE PUFF INTO THE LUNGS TWICE DAILY levothyroxine 75 mcg tablet 75 mcg PO DAILY losartan 100 mg tablet 100 mg PO DAILY Patient Comments: TAKE 1 TABLET BY MOUTH EVERY DAY verapamil 240 mg capsule,ext rel. pellets 24 hr 240 mg PO DAILY Patient Comments: TAKE 1 CAPSULE BY MOUTH EVERY DAY alprazolam 0.5 mg tablet 0.5 mg PO DAILY PRN (Reason: anxiety) Patient Comments: TAKE 1 TABLET BY MOUTH EVERY DAY Primary Care Provider: Sandro Rosa Referrals: Sandro Rosa MD [Primary Care Provider] - Activity Restrictions/Additional Instructions: Call Dr. Rosa today, make an appointment for later this afternoon or tomorrow per your vascular surgeon recommendation. Follow-up with your vascular surgeon at scheduled appointment. Only check your blood pressure 3-4 times a day, and if anything is greater than 180 mg systolic, follow-up with PCP or your vascular surgeon. Continue taking medication as prescribed. If you have any significant symptoms of headache, vision changes, chest pain, shortness of breath, or any acute concerns with your surgical incision call your vascular surgeon or return to the ER. Disposition Disposition: Home, Self Care Discharge Date/Time: 11/19/23 14:47 Capacity Legal Bag Loader Reflex Medical hold order details:: IF a medical hold is selected below, a suggested order for a MEDICAL HOLD will reflex upon signing the document. Next of kin: [place] law dictates a PRIORITY LIST for identifying legal decision-maker/legal next of kin in the following order (LNOK): 1st: The patient?s legal guardian, if any 2nd: The patient's spouse (if status is questionable, consult Risk Management) 3rd: The patient?s adult child(onur) (majority, if multiple children) 4th: The patient?s parents 5th: The patient?s adult siblings (majority, if multiple children siblings)
[2023-11-19 12:24] LABS: Absolute Lymphocyte Count 1.23 X10^3/uL (0.83-4.51); Absolute Neutrophil Count 8.6 X10^3/uL (2.0-7.7); Basophil# 0.04 X10^3/uL; Basophil% 0.4 % (0-1); Eosinophil# 0.02 X10^3/uL; Eosinophils% 0.2 % (0-5); Hemoglobin 13.1 g/dL (13.0-16.5); Lymphocyte # 1.23 X10^3/ul (0.83-4.51); Lymphocyte % 11.1 % (19-41); Mean Corp Hgb Conc 36.4 g/dL (32-36); Mean Corpuscular Hgb 31.7 pg (27.0-32.0); Mean Corpuscular Volume 87.2 fL (80-94); Mean Platelet Vol. 8.5 fl (6.2-12.0); Monocyte# 1.14 X10^3/uL; Monocyte% 10.3 % (0-10); NRBC Flagged by Analyzer 0 % (0-5); Neutrophil # 8.62 X10^3/uL (2.7-7.7); Neutrophil % 77.5 % (47-70); Platelet Count 292 K/mm3 (150-450); RBC Distribution Width CV 13.2 % (11.6-14.6); RBC Distribution Width SD 42.5 fl (35.1-43.9); Red Blood Count 4.13 M/mm3 (4.6-6.2); White Blood Count 11.1 K/mm3 (4.4-11.0)
[2023-11-19] MEDS: LORazepam 2 MG/ML Syringe 1 MG IV (12:31)
[2023-11-19] MEDS: Aspirin 81 MG TAB.CHEW 324 MG PO (12:32)
--- NOTE | 2023-11-19 12:32 | ED.RN ---
NO OLD EKG
[2023-11-19 12:35] LABS: Prothrombin Time (Protime)PT. 13.5 SECONDS (11.7-14.9)
[2023-11-19 12:42] LABS: Anion Gap 7 (5-15); BUN 7 mg/dL (7-18); BUN/Creat Ratio 7.6 RATIO (10-20); Calcium,Total 9.1 mg/dL (8.5-10.1); Chloride 88 mmol/L (98-107); Creatinine, Serum 0.92 mg/dL (0.70-1.30); EST Glomerular Filtration Rate 90 mL/min (>60); Est Glom Filt Rate - Afr Amer 109 mL/min (>60); Estimated Creatinine Clearance 82.18 ml/min; Glucose 99 mg/dL (74-106); Potassium 3.1 mmol/L (3.5-5.1); Sodium Level 126 mmol/L (136-145); Troponin-I HS (w/2H Reflex) 11 pg/mL (3.0-78.0)
[2023-11-19 12:44] LABS: BNP,B-Type NATRIURETIC PEPTIDE 91.3 pg/mL (0-100)
[2023-11-19 13:12] LABS: Partial Thromboplast Time 30.6 Seconds (24.1-36.2)
[2023-11-19] MEDS: Potassium Chloride Oral Soln 20 MEQ/15 ML UDC 40 MEQ PO (14:07)
[2023-11-19 14:21] LABS: Reflex Troponin-HS? (from REC) Y
[2023-11-19 14:46] LABS: Troponin-I HS 14 pg/mL (3.0-78.0)
== END 2023-11-19 14:47 | disposition home or self-care (01) ==
PROVIDERS: Emergency Provider Emergency Medicine; PCP Family Medicine; Visit Provider Emergency Medicine
DX: I10 Essential (primary) hypertension (principal); Z87.891 Personal history of nicotine dependence; Z79.899 Other long term (current) drug therapy; Z79.82 Long term (current) use of aspirin; E03.9 Hypothyroidism, unspecified; Z98.890 Other specified postprocedural states; F41.9 Anxiety disorder, unspecified
CPT/HCPCS: 80048; 83880; 84484; 85025; 85610; 85730; 93005; 99284; A4216